=== PATIENT | born 1970 | race Two or more races ===

== ENCOUNTER 2017-05-02 16:17 | Outpatient (CLI) | payer BC ==
--- NOTE | 2017-05-03 14:52 | Diagnostic Imaging Report ---
Indication: left ankle pain Comparison: None Findings: 3 views of the left ankle obtained. No acute fracture, malalignment, periostitis, or osteochondral defects are identified. Soft tissues are unremarkable. Impression: No acute findings
--- NOTE | 2017-05-03 14:54 | Diagnostic Imaging Report ---
Indication: Pain Comparison: None Findings: Two views of the right tibia and fibula were obtained. No acute fracture, malalignment, or periosteal reaction are identified. Soft tissues are unremarkable. Impression: Negative examination of the tibia and fibula
--- NOTE | 2017-05-03 14:55 | Diagnostic Imaging Report ---
Indication: Pain right ankle Comparison: None Findings: 3 views of the right ankle obtained. No acute fracture, malalignment, periostitis, or osteochondral defects are identified. Soft tissues are unremarkable. Impression: Negative examination
== END 2017-05-02 18:17 | disposition home or self-care (01) ==
LOC: EDSEX 16:17 → RAD 16:17
DX: Z00.01 Encounter for general adult medical examination with abnormal findings (principal); S93.409A Sprain of unspecified ligament of unspecified ankle, initial encounter; X58.XXXA Exposure to other specified factors, initial encounter; Y93.9 Activity, unspecified; Y92.9 Unspecified place or not applicable